=== PATIENT | female | born 1990 | race Caucasian/White ===

== ENCOUNTER → 2017-09-19 14:14 | Observation (INO) ==
[2017-09-19 12:22] LABS: Bilirubin,Urine Moderate (Negative); Blood,Urine Large (Negative); Clarity,Urine Turbid (Clear); Color,Urine Red (Yellow); Glucose,Urine (UA) Normal (Normal); Ketones,Urine 15 mg/dL (Negative); Leukocyte Esterase,Urine Small (Negative); Nitrite,Urine Negative (Negative); Protein,Urine 100 mg/dL (Neg-Trace); Specific Gravity,Urine 1.025 (1.010-1.025); Urobilinogen,Urine Normal (Normal)
[2017-09-19 12:25] LABS: Bacteria,Urine Few per hpf (None-Few); Hyaline Casts,Urine Few per lpf (None-Few); RBC,Urine TNTC per hpf (0-3); Squamous Epithelial Cell,Urine Many per lpf (None-Few); WBC,Urine 30-50 per hpf (0-3)
[2017-09-19 12:36] LABS: Amphetamine Screen,Urine Negative ng/mL (Cutoff=1000); Barbiturate Screen,Urine Negative ng/mL (Cutoff=200); Benzodiazepines Screen,Urine Negative ng/mL (Cutoff=200); Cannabinoid Screen,Urine Negative ng/mL (Cutoff = 50); Cocaine Screen,Urine Negative ng/mL (Cutoff= 300); Opiate Screen,Urine Negative ng/mL (Cutoff=300); Phencyclidine Screen,Urine Negative ng/mL (Cutoff=25)
--- NOTE | 2017-09-19 13:37 | OB/GYN Progress Note ---
Date of Encounter: 09/19/17 Time of Encounter: 13:36 - Assessment and Plan (1) 35 weeks gestation of Current Visit: Yes Status: Acute follow up with [facility] as scheduled. (2) Encounter for suspected PROM, with rupture of membranes not found Current Visit: Yes Status: Acute Spec exam shows normal discharge of Fern negative (3) UTI in Current Visit: Yes Status: Acute Will send home on keflex. +UA Qualifiers: Trimester: third trimester Qualified Code(s): O23.43 - Unspecified infection of urinary tract in , third trimester Subjective - Subjective Interval history: 35+3 with care at [facility] presents to triage with complaints of cramping and pain with urination, noticed blood in urine this morning. DVT this on lovenox 90mg daily. Recently released from intermediate. Reports good movement, denies vaginal bleeding has felt some leaking of fluid in triage. Antepartum ROS: loss of fluid, movement normal, contractions, no vaginal bleeding Objective - Vital Signs Vital Signs: Intake and Output 09/18/17 09/19/17 09/19/17 23:59 07:59 15:59 Other: Weight 60.2 kg Patient Weight 09/19/17 23:59 Weight 60.2 kg - Exam FHR: auscultation normal FHR comments: baseline 135 Abdomen: Present: normal appearance, gravid Comments: -cva - Labs Labs: Abnormal lab results Urine Color Red (Yellow) A 09/19/17 12:00 Urine Clarity Turbid (Clear) A 09/19/17 12:00 Urine Protein 100 mg/dL (Neg-Trace) H 09/19/17 12:00 Urine Ketones 15 mg/dL (Negative) H 09/19/17 12:00 Urine Blood Large (Negative) H 09/19/17 12:00 Urine Bilirubin Moderate (Negative) H 09/19/17 12:00 Ur Leukocyte Esterase Small (Negative) H 09/19/17 12:00 Urine Microscopic RBC TNTC per hpf (0-3) H 09/19/17 12:00 Urine Microscopic WBC 30-50 per hpf (0-3) H 09/19/17 12:00 Ur Squamous Epith Cells Many per lpf (None-Few) H 09/19/17 12:00
[~2017-09-19 14:14] MED LIST: Ringers Solution, Lactated 1,000 ML IVC SCH; Ringers Solution, Lactated 1,000 ML ONE; Ringers Solution, Lactated 500 ML IVC ONE
== END | disposition home or self-care (01) ==
LOC: 1NENULAB
PROVIDERS: ADMIT Obstetrics & Gynecology; ATTEND Obstetrics & Gynecology

== ENCOUNTER 2021-02-20 08:09 | Inpatient (IN) ==
[2021-02-20] MEDS ORDERED: Ringers Solution, Lactated 1,000 ML ONE (08:14)
[2021-02-20] MEDS ORDERED: Naloxone 0.4 MG/ML INJ IVP PRN (08:18)
[2021-02-20] MEDS ORDERED: Metoclopramide 10 MG/2 ML VIAL IVP PRN (08:18)
[2021-02-20] MEDS ORDERED: Famotidine 20 MG/2 ML VIAL IVP PRN (08:18)
[2021-02-20] MEDS ORDERED: Lidocaine 1% 20 ML MDV INFILT PRN (08:18)
[2021-02-20] MEDS ORDERED: Ondansetron 4 MG/2 ML VIAL IVP PRN (08:18)
[2021-02-20] MEDS ORDERED: Penicillin G Potassium 5,000,000 UNIT in 0.9 % Sodium Chloride Mini Bag 100 ML IVPB ONE (08:22)
[2021-02-20] MEDS ORDERED: Ringers Solution, Lactated 1,000 ML IVC SCH (08:30)
[2021-02-20] MEDS ORDERED: Oxytocin 20 units/ LR 1000 mL 20 UNIT/1,000 ML BAG IVC ONE (08:32)
[2021-02-20 08:42] LABS: Basophils # 0.1 K/mcL (0.0-0.2); Basophils % 0.5 %; Eosinophils # 0.1 K/mcL (0.0-0.6); Eosinophils % 0.5 %; Hemoglobin 10.9 g/dL (11.5-15.4); Immature Granulocytes % 0.6 % (0-4); Lymphocytes # 2.6 K/mcL (0.6-4.6); Lymphocytes % 15.2 %; Mean Corpuscular Volume 90.9 fL (83.0-100.0); Mean Platelet Volume 11.6 fL (9.4-12.4); Monocytes # 0.8 K/mcL (0.0-1.3); Monocytes % 4.4 %; Neutrophils # 13.5 K/mcL (1.6-8.9); Platelet Count 306 K/mcL (140-400); Red Blood Count 3.63 M/mcL (3.82-4.97); Red Cell Distribution Width 12.3 % (11.5-14.5); Segmented Neutrophils % 78.8 %; White Blood Count 17.2 K/mcL (4.3-11.1)
[2021-02-20 09:15] LABS: Influenza A PCR Negative (Negative); Influenza B PCR Negative (Negative); Resp. Syncytial Virus PCR Negative (Negative)
[2021-02-20 09:16] LABS: SARS-CoV-2 by PCR (In House) Negative (Negative)
[2021-02-20] MEDS ORDERED: Ketorolac 30 MG/ML VIAL IVP ONE (09:16)
[2021-02-20] MEDS ORDERED: Ondansetron ODT 4 MG TAB.RAPDIS SL PRN (11:59)
[2021-02-20] MEDS ORDERED: Benzocaine/Menthol 56 GM AEROSOL SPRAY TP PRN (11:59)
[2021-02-20] MEDS ORDERED: Lanolin 7 G OINT...G. TP PRN (11:59)
[2021-02-20] MEDS ORDERED: Oxytocin 20 units/ LR 1000 mL 20 UNIT/1,000 ML BAG IVC SCH (11:59)
[2021-02-20] MEDS: Acetaminophen 325 MG TABLET PO SCH ×2 (12:27→18:44)
[2021-02-20 14:49] LABS: Amphetamine Screen,Urine Negative ng/mL (Cutoff=1000); Barbiturate Screen,Urine Negative ng/mL (Cutoff=200); Benzodiazepines Screen,Urine Negative ng/mL (Cutoff=200); Cannabinoid Screen,Urine Negative ng/mL (Cutoff = 50); Cocaine Screen,Urine Positive ng/mL (Cutoff= 300); Opiate Screen,Urine Negative ng/mL (Cutoff=300); Phencyclidine Screen,Urine Negative ng/mL (Cutoff=25)
[2021-02-20] MEDS: Ibuprofen 600 MG TABLET PO SCH (18:44)
[2021-02-20] MEDS: cloNIDine HCL 0.1 MG TABLET PO SCH ×2 (18:44→23:39)
[2021-02-20] MEDS: *HR* Enoxaparin 30 MG/0.3 ML SYRINGE SQ SCH (23:35)
[2021-02-21] MEDS: Acetaminophen 325 MG TABLET PO SCH ×3 (01:19→15:28)
[2021-02-21] MEDS: Ibuprofen 600 MG TABLET PO SCH ×4 (01:19→21:02)
[2021-02-21 04:52] LABS: Basophils # 0.1 K/mcL (0.0-0.2); Basophils % 0.6 %; Eosinophils # 0.3 K/mcL (0.0-0.6); Hematocrit 29.8 % (35.3-44.9); Hemoglobin 9.6 g/dL (11.5-15.4); Immature Granulocytes % 0.6 % (0-4); Lymphocytes # 4.1 K/mcL (0.6-4.6); Mean Corpuscular HGB Conc 32.2 g/dL (31.6-35.5); Mean Corpuscular Hemoglobin 30.2 pg (28.0-33.3); Mean Corpuscular Volume 93.7 fL (83.0-100.0); Mean Platelet Volume 11.2 fL (9.4-12.4); Monocytes # 1.4 K/mcL (0.0-1.3); Monocytes % 8.5 %; Neutrophils # 10.4 K/mcL (1.6-8.9); Platelet Count 306 K/mcL (140-400); Red Blood Count 3.18 M/mcL (3.82-4.97); Red Cell Distribution Width 12.4 % (11.5-14.5); Segmented Neutrophils % 63.3 %; White Blood Count 16.4 K/mcL (4.3-11.1)
[2021-02-21 05:32] LABS: Platelet Estimate Normal (Normal); Reactive Lymphocytes Present (Not Present)
[2021-02-21] MEDS: Prenatal Vit/FA 1 EACH TABLET PO SCH (07:50)
[2021-02-21] MEDS: cloNIDine HCL 0.1 MG TABLET PO SCH ×3 (07:53→21:02)
[2021-02-21] MEDS ORDERED: Etonogestrel 68 MG IMPLANT IL ONE (08:51)
[2021-02-21] MEDS: *HR* Enoxaparin 30 MG/0.3 ML SYRINGE SQ SCH (21:00)
[2021-02-22 07:58] VITALS: BP 110/69; PULSE 60; TEMP 98.2; O2SAT 98
[2021-02-22] MEDS: Acetaminophen 325 MG TABLET PO SCH (08:30)
[2021-02-22] MEDS: Ibuprofen 600 MG TABLET PO SCH (08:31)
[2021-02-22] MEDS: Prenatal Vit/FA 1 EACH TABLET PO SCH (08:32)
[2021-02-22] MEDS: cloNIDine HCL 0.1 MG TABLET PO SCH (08:32)
== END 2021-02-22 16:00 | disposition home or self-care (01) | DRG 560 ==
LOC: 1NENULAB 08:09 → 1NENUOBS 11:57
PROVIDERS: ADMIT Obstetrics & Gynecology; ATTEND Obstetrics & Gynecology